=== PATIENT | male | born 1960 | race African-American/Black ===

== ENCOUNTER 2025-01-20 07:45 | Outpatient (RCR) | payer OTHER, SELFPAY | END 2025-02-11 11:55 | disposition home or self-care (01) | LOC: HO.WCC 07:45 | PROVIDERS: PCP Internal Medicine; Visit Provider Surgery | DX: E11.622 Type 2 diabetes mellitus with other skin ulcer (principal); L97.211 Non-pressure chronic ulcer of right calf limited to breakdown of skin; S80.822A Blister (nonthermal), left lower leg, initial encounter; I87.331 Chronic venous hypertension (idiopathic) with ulcer and inflammation of right lower extremity; I87.322 Chronic venous hypertension (idiopathic) with inflammation of left lower extremity; Z79.899 Other long term (current) drug therapy | CPT/HCPCS: 11042; 11045; 29580; 99212; 99213 ==

== ENCOUNTER 2025-06-25 10:30 | Outpatient (RCR) | payer MEDICARE, OTHER, MEDICAID, SELFPAY | END 2025-06-25 16:52 | disposition home or self-care (01) | LOC: HO.WCC 10:30 | PROVIDERS: PCP Internal Medicine; Visit Provider Surgery Vascular Surgery | DX: I87.393 Chronic venous hypertension (idiopathic) with other complications of bilateral lower extremity (principal); E11.40 Type 2 diabetes mellitus with diabetic neuropathy, unspecified; E11.22 Type 2 diabetes mellitus with diabetic chronic kidney disease; N18.9 Chronic kidney disease, unspecified; I89.0 Lymphedema, not elsewhere classified | CPT/HCPCS: 11042; 29580; 97597; 99203; 99212; 99213; 99214 ==